=== PATIENT | male | born 1955 | race Caucasian/White ===

== ENCOUNTER 2016-05-12 14:52 | Emergency (ER) | payer OTHER ==
[~2016-05-12 14:52] MED LIST: PRED50 PO
[2016-05-12 15:57] VITALS: BP 140/82; PULSE 85; RESP 20; TEMP 98.1; O2SAT 98
--- NOTE | 2016-05-12 15:58 | PD ---
HPI Chief Complaint: [place] Act/ETOH Time Seen by Provider: 15:54 Travel History International Travel<30 days: No Contact w/Intl Traveler<30days: No Traveled to known affect area: No History of Present Illness HPI 61-year-old male brought into the emergency department under the Dean 's act for alcoholic intoxication. The patient is ambulatory, oriented to place and time, and is desiring to leave. He has no medical complaints. Patient is coherent and cooperative. He is homeless but feels that he can take care of himself. Not suicidal or homicidal. He has a history of MRSA and allergies to ibuprofen, and latex. PFSH Past Medical History Autoimmune Disease: No Heart Rhythm Problems: No Cancer: Yes (ESOPHAGEAL CANCER) Cardiac Catheterization: No Cardiovascular Problems: No Chemotherapy: Yes Congestive Heart Failure: No Cerebrovascular Accident: Yes (TIA) Diabetes: No Diminished Hearing: No Endocrine: No Gastrointestinal Disorders: Yes GERD: Yes Genitourinary: No Hiatal Hernia: No Hypertension: Yes Immune Disorder: No Implanted Vascular Access Dvce: Yes Musculoskeletal: No Neurologic: No Psychiatric: No Reproductive: No Respiratory: Yes (BRONCHITIS) Integumentary: Yes (RIGHT ARM PICC LINE FOR DAILY CUBICIN FOR CURRENT MRSA INFECTION) Radiation Therapy: Yes Ulcer: Yes Past Surgical History Abdominal Surgery: No AICD: No Arteriovenous Shunt: No Cardiac Surgery: No Coronary Artery Bypass Graft: No Ear Surgery: No Endocrine Surgery: No Eye Surgery: No Genitourinary Surgery: No Insulin Pump: No Joint Replacement: Yes (RIGHT ANKLE WITH PINS) Oral Surgery: Yes (TEETH PULLED) Pacemaker: No Thoracic Surgery: No Tonsillectomy: Yes Other Surgery: Yes (pins rt leg, esoghasgeal) Social History Alcohol Use: Yes (TRYS TO EVERY DAY) Tobacco Use: Yes Substance Use: No (denies drug use for 2 years) Allergies-Medications (Allergen,Severity, Reaction): Coded Allergies: Ibuprofen (Verified Allergy, Intermediate, Swelling, 02/22/16) Nonsteroidal Anti-Inflammatory Agts (Verified Allergy, Intermediate, NOT SPECIFIED, 02/22/16) Latex (Verified Allergy, Mild, BLISTER, 02/22/16) *MDRO Multi-Drug Resistant Organism (Verified Allergy, Unknown, 02/22/16) MRSA Sputum, Blood 05/2012 Reported Meds & Prescriptions Reported Meds & Active Scripts Active Prednisone 50 Mg Tab 50 Mg PO DAILY Review of Systems Except as stated in HPI: all other systems reviewed are Neg General / Constitutional: No: Fever Eyes: No: Visual changes HENT: No: Headaches Cardiovascular: No: Chest Pain or Discomfort Respiratory: No: Shortness of Breath Gastrointestinal: No: Abdominal Pain Genitourinary: No: Dysuria Musculoskeletal: No: Pain Skin: No Rash Neurologic: No: Weakness Psychiatric: Positive: Substance Abuse, No: Anxiety, Depression, Suicidal Ideations, Disorder of Thought, Mood Disorder, Homicidal Ideation Endocrine: No: Polydipsia Hematologic/Lymphatic: No: Easy Bruising Physical Exam Exam Limitations: Intoxication Narrative GENERAL: Patient is in no acute distress. He is alert and oriented 3. He is cooperative and in good spirits. SKIN: Warm and dry. No signs of trauma. HEAD: Atraumatic. Normocephalic. EYES: Pupils equal and round. No scleral icterus. No injection or drainage. ENT: No nasal bleeding or discharge. Mucous membranes pink and moist. Pharynx is clear. NECK: Trachea midline. Neck is supple and nontender. CARDIOVASCULAR: Regular rate and rhythm. RESPIRATORY: No accessory muscle use. Clear to auscultation. Breath sounds equal bilaterally. GASTROINTESTINAL: Abdomen soft, non-tender, nondistended. Hepatic and splenic margins not palpable. MUSCULOSKELETAL: Extremities without clubbing, cyanosis, or edema. No obvious deformities. NEUROLOGICAL: Awake and alert. No obvious cranial nerve deficits. Motor grossly within normal limits. Five out of 5 muscle strength in the arms and legs. Normal speech. PSYCHIATRIC: Appropriate mood and affect; insight and judgment normal. MDM Medical Decision Making Medical Screen Exam Complete: Yes Emergency Medical Condition: Yes Differential Diagnosis Dean's act. EtOH intoxication. Homeless. Narrative Course Patient is felt to be medically stable at time of exam. Based on my history and physical I feel this patient is free to go on his own recognizance. Patient is discharged with information for [facility] for EtOH rehabilitation. Diagnosis Primary Impression: Alcohol intoxication Qualified Code: F10.120 - Alcohol intoxication, uncomplicated Referrals: [facility] Additional Instructions: Recommend follow with [facility]. Med/Other Pt SpecificInfo: No Meds Exist/No RX given Disposition: DISCHARGE HOME Condition: Stable Marbin Lino May 12, 2016 15:58
== END 2016-05-12 16:11 | disposition home or self-care (01) ==
LOC: NEDAMB 14:52
DX: F10.120 Alcohol abuse with intoxication, uncomplicated (principal); I10 Essential (primary) hypertension; Z72.0 Tobacco use; Z86.14 Personal history of Methicillin resistant Staphylococcus aureus infection; Z85.01 Personal history of malignant neoplasm of esophagus; Z86.73 Personal history of transient ischemic attack (TIA), and cerebral infarction without residual deficits; Z87.19 Personal history of other diseases of the digestive system; Z87.09 Personal history of other diseases of the respiratory system; Z87.2 Personal history of diseases of the skin and subcutaneous tissue
CPT/HCPCS: 99284

== ENCOUNTER 2016-06-07 18:28 | Emergency (ER) | payer OTHER ==
[~2016-06-07] VITALS: Ht 165.1 cm; Wt 67.0 kg
--- NOTE | 2016-06-07 18:52 | PD ---
HPI Chief Complaint: alcohol intoxication Time Seen by Provider: 18:48 Travel History International Travel<30 days: No Contact w/Intl Traveler<30days: No History of Present Illness HPI 61-year-old male presents to the emergency Department under [place] Act by local police for alcohol intoxication. Patient states that he had "a lot" to drink today. He states he went to lay down in [facility] which is allowed to do an [place]. He states that at that point, he was picked up by the police. He states he needs somewhere to sleep, but denies any medical complaints. He denies any suicidal ideation. Patient reports having no chronic medical problems or taking prescribed medications. The patient answers questions appropriately. PFSH Past Medical History Autoimmune Disease: No Heart Rhythm Problems: No Cancer: Yes (ESOPHAGEAL CANCER) Cardiac Catheterization: No Cardiovascular Problems: No Chemotherapy: Yes Congestive Heart Failure: No Cerebrovascular Accident: Yes (TIA) Diabetes: No Diminished Hearing: No Endocrine: No Gastrointestinal Disorders: Yes GERD: Yes Genitourinary: No Hiatal Hernia: No Hypertension: Yes Immune Disorder: No Implanted Vascular Access Dvce: Yes Musculoskeletal: No Neurologic: No Psychiatric: No Reproductive: No Respiratory: Yes (BRONCHITIS) Integumentary: Yes (RIGHT ARM PICC LINE FOR DAILY CUBICIN FOR CURRENT MRSA INFECTION) Radiation Therapy: Yes Ulcer: Yes Past Surgical History Abdominal Surgery: No AICD: No Arteriovenous Shunt: No Cardiac Surgery: No Coronary Artery Bypass Graft: No Ear Surgery: No Endocrine Surgery: No Eye Surgery: No Genitourinary Surgery: No Insulin Pump: No Joint Replacement: Yes (RIGHT ANKLE WITH PINS) Oral Surgery: Yes (TEETH PULLED) Pacemaker: No Thoracic Surgery: No Tonsillectomy: Yes Other Surgery: Yes (pins rt leg, esoghasgeal) Social History Alcohol Use: Yes (TRYS TO EVERY DAY) Tobacco Use: Yes Substance Use: No (denies drug use for 2 years) Allergies-Medications (Allergen,Severity, Reaction): Coded Allergies: Ibuprofen (Verified Allergy, Intermediate, Swelling, 06/07/16) Nonsteroidal Anti-Inflammatory Agts (Verified Allergy, Intermediate, NOT SPECIFIED, 06/07/16) Latex (Verified Allergy, Mild, BLISTER, 06/07/16) *MDRO Multi-Drug Resistant Organism (Verified Allergy, Unknown, 06/07/16) MRSA Sputum, Blood 05/2012 Reported Meds & Prescriptions Reported Meds & Active Scripts Active Prednisone 50 Mg Tab 50 Mg PO DAILY Review of Systems Except as stated in HPI: all other systems reviewed are Neg Physical Exam Narrative GENERAL: Unkempt male patient, afebrile. Patient has strong smell of alcohol on his breath. SKIN: Focused skin assessment warm/dry. HEAD: Normocephalic. Atraumatic. EYES: No scleral icterus. No injection or drainage. NECK: Supple, trachea midline. No JVD or lymphadenopathy. CARDIOVASCULAR: Regular rate and rhythm without murmurs, gallops, or rubs. RESPIRATORY: Breath sounds equal bilaterally. No accessory muscle use. Lungs sounds are clear to auscultation. GASTROINTESTINAL: Abdomen soft, non-tender, nondistended. MUSCULOSKELETAL: No cyanosis, or edema. BACK: Nontender without obvious deformity. No CVA tenderness. PSYCHIATRIC: No delusional thought processes. No hallucinations. Data Data Last Documented VS Vital Signs Date Time Temp Pulse Resp B/P Pulse Ox O2 Delivery O2 Flow Rate FiO2 06/07/16 19:31 98.8 75 18 118/76 95 MDM Medical Decision Making Medical Screen Exam Complete: Yes Emergency Medical Condition: Yes Medical Record Reviewed: Yes Differential Diagnosis Alcohol intoxication versus substance abuse versus medical clearance Narrative Course 61-year-old male presents to the emergency department under [facility] for alcohol intoxication. Patient is alert and oriented to person, place, time. He has no medical complaints at this time. Patient will be allowed to rest in the emergency department. Patient is alert and oriented to person, place, time and is able ambulate without difficulty. He will be discharged. He is given information on public shelters. Diagnosis Primary Impression: Alcohol intoxication Qualified Code: F10.120 - Alcohol intoxication, uncomplicated Referrals: [facility] call for appointment Patient Instructions: Alcohol Intoxication (ED), General Instructions Additional Instructions: Follow-up at [facility]. Please drink alcohol in Moderation. Return to the emergency department for any acute worsening of symptoms. Med/Other Pt SpecificInfo: No Change to Meds Disposition: 01 DISCHARGE HOME Condition: Stable Eliana Oquendo LORETA Jun 07, 2016 18:52
[2016-06-07 19:31] VITALS: BP 118/76; PULSE 75; RESP 18; TEMP 98.8; O2SAT 95
--- NOTE | 2016-06-07 19:44 | PD ---
Data Data Last Documented VS Vital Signs Date Time Temp Pulse Resp B/P Pulse Ox O2 Delivery O2 Flow Rate FiO2 06/07/16 19:31 98.8 75 18 118/76 95 MDM Supervised Visit with SHARON: Yes Narrative Course I, Dr. Jordan, have reviewed the advance practice practioner's documentation and am in agreement, met with the patient face to face, made the diagnosis, and the medical decision making was done by me. *My assessment and Findings: 61-year-old here brought as a [place] act by police for public intoxication. Admits to drinking heavily and then leaned down on the side of the road, [facility] area patient moved here from [place] recently and does not have any home. Patient is able to ambulate independently in the emergency Department, vital signs stable. Patient denies any complaints. He will be discharged and given list of homeless shelters. Yuridia Jordan MD Jun 07, 2016 19:44
== END 2016-06-07 20:04 | disposition home or self-care (01) ==
LOC: NEPE 18:28
DX: F10.120 Alcohol abuse with intoxication, uncomplicated (principal); I10 Essential (primary) hypertension; Z72.0 Tobacco use; Z59.0 Homelessness; Z85.01 Personal history of malignant neoplasm of esophagus; Z86.79 Personal history of other diseases of the circulatory system; Z87.19 Personal history of other diseases of the digestive system
CPT/HCPCS: 99284

== ENCOUNTER 2016-08-15 13:28 | Emergency (ER) | payer OTHER ==
--- NOTE | 2016-08-15 13:57 | PD ---
HPI Chief Complaint: alcohol intoxication Time Seen by Provider: 13:44 Travel History International Travel<30 days: No Contact w/Intl Traveler<30days: No Traveled to known affect area: No History of Present Illness HPI This patient is a local homeless alcoholic. He drinks as much as he can get a hold of on a daily basis. He was drinking today. [place] Inspector found him lying on the median of the road and brought him into the ER. He does not have any specific physical complaints. He denies injury today. He just says he probably drank too much and wanted to take a break. Symptoms severity is mild. No alleviating factors. Duration is heavy drinking for many years PFSH Past Medical History Autoimmune Disease: No Heart Rhythm Problems: No Cancer: Yes (ESOPHAGEAL CANCER) Cardiac Catheterization: No Cardiovascular Problems: No Chemotherapy: Yes Congestive Heart Failure: No Cerebrovascular Accident: Yes (TIA) Diabetes: No Diminished Hearing: No Endocrine: No Gastrointestinal Disorders: Yes GERD: Yes Genitourinary: No Hiatal Hernia: No Hypertension: Yes Immune Disorder: No Implanted Vascular Access Dvce: Yes Musculoskeletal: No Neurologic: No Psychiatric: No Reproductive: No Respiratory: Yes (BRONCHITIS) Integumentary: Yes (RIGHT ARM PICC LINE FOR DAILY CUBICIN FOR CURRENT MRSA INFECTION) Radiation Therapy: Yes Ulcer: Yes Past Surgical History Abdominal Surgery: No AICD: No Arteriovenous Shunt: No Cardiac Surgery: No Coronary Artery Bypass Graft: No Ear Surgery: No Endocrine Surgery: No Eye Surgery: No Genitourinary Surgery: No Insulin Pump: No Joint Replacement: Yes (RIGHT ANKLE WITH PINS) Oral Surgery: Yes (TEETH PULLED) Pacemaker: No Thoracic Surgery: No Tonsillectomy: Yes Other Surgery: Yes (pins rt leg, esoghasgeal) Social History Alcohol Use: Yes (TRYS TO EVERY DAY) Tobacco Use: Yes Substance Use: No (denies drug use for 2 years) Allergies-Medications (Allergen,Severity, Reaction): Coded Allergies: Ibuprofen (Verified Allergy, Intermediate, Swelling, 06/07/16) Nonsteroidal Anti-Inflammatory Agts (Verified Allergy, Intermediate, NOT SPECIFIED, 06/07/16) Latex (Verified Allergy, Mild, BLISTER, 06/07/16) *MDRO Multi-Drug Resistant Organism (Verified Allergy, Unknown, 06/07/16) MRSA Sputum, Blood 05/2012 Reported Meds & Prescriptions Reported Meds & Active Scripts Active Prednisone 50 Mg Tab 50 Mg PO DAILY Review of Systems General / Constitutional: No: Fever Eyes: No: Visual changes HENT: No: Headaches Cardiovascular: No: Chest Pain or Discomfort Respiratory: No: Shortness of Breath Gastrointestinal: No: Abdominal Pain Genitourinary: No: Dysuria Musculoskeletal: No: Pain Skin: No Rash Neurologic: No: Weakness Psychiatric: Positive: Substance Abuse, No: Depression Endocrine: No: Polydipsia Hematologic/Lymphatic: No: Easy Bruising Physical Exam Narrative GENERAL: Disheveled well-developed patient in no apparent distress. SKIN: Focused skin assessment reveals no rash and nodules. Skin is Warm and dry. HEAD: Atraumatic. Normocephalic. EYES: Pupils equal and round. No scleral icterus. No injection or drainage. ENT: No nasal bleeding or discharge. Mucous membranes pink and moist. NECK: Trachea midline. No JVD. CARDIOVASCULAR: Regular rate and rhythm. No murmur appreciated. RESPIRATORY: No accessory muscle use. Clear to auscultation. Breath sounds equal bilaterally. GASTROINTESTINAL: Abdomen soft, non-tender, nondistended. Hepatic and splenic margins not palpable. 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 No clubbing. No cyanosis. No edema. Healing wound scar over the right buttock NEUROLOGICAL: Awake and alert. No obvious cranial nerve deficits. Motor grossly within normal limits. Normal speech. PSYCHIATRIC: Appropriate mood and affect; insight and judgment poor. Data Data Last Documented VS Vital Signs Date Time Temp Pulse Resp B/P Pulse Ox O2 Delivery O2 Flow Rate FiO2 08/15/16 14:25 98.6 87 18 140/77 99 Room Air Orders Iv Access Insert/Monitor (08/15/16 13:54) Complete Blood Count With Diff (08/15/16 13:54) Basic Metabolic Panel (Bmp) (08/15/16 13:54) Alcohol (Ethanol) (08/15/16 13:54) Isolation 08,20 (08/15/16 14:28) Acetaminophen (Tylenol) (08/15/16 14:45) Labs Laboratory Tests Test 08/15/16 14:16 White Blood Count 7.0 TH/MM3 Red Blood Count 4.28 MIL/MM3 Hemoglobin 13.8 GM/DL Hematocrit 40.0 % Mean Corpuscular Volume 93.7 FL Mean Corpuscular Hemoglobin 32.4 PG Mean Corpuscular Hemoglobin 34.6 % Concent Red Cell Distribution Width 15.0 % Platelet Count 228 TH/MM3 Mean Platelet Volume 6.5 FL Neutrophils (%) (Auto) 55.0 % Lymphocytes (%) (Auto) 35.3 % Monocytes (%) (Auto) 7.3 % Eosinophils (%) (Auto) 1.9 % Basophils (%) (Auto) 0.5 % Neutrophils # (Auto) 3.9 TH/MM3 Lymphocytes # (Auto) 2.5 TH/MM3 Monocytes # (Auto) 0.5 TH/MM3 Eosinophils # (Auto) 0.1 TH/MM3 Basophils # (Auto) 0.0 TH/MM3 CBC Comment DIFF FINAL Differential Comment Sodium Level 140 MEQ/L Potassium Level 4.4 MEQ/L Chloride Level 107 MEQ/L Carbon Dioxide Level 23.7 MEQ/L Anion Gap 9 MEQ/L Blood Urea Nitrogen 6 MG/DL Creatinine 0.65 MG/DL Estimat Glomerular Filtration 125 ML/MIN Rate Random Glucose 88 MG/DL Calcium Level 8.0 MG/DL Ethyl Alcohol Level 332 MG/DL [facility] Medical Decision Making Medical Screen Exam Complete: Yes Emergency Medical Condition: Yes Medical Record Reviewed: Yes Differential Diagnosis Alcohol intoxication, polysubstance abuse, malingering Narrative Course I have reviewed the patient's electronic medical record. IV placed CBC is normal Metabolic profile is normal Alcohol level is elevated showing acute intoxication Patient be given time to sober up when he can properly talk and walk he'll be stable for outpatient follow-up I'm recommending [facility] alcohol rehabilitation services and primary care follow-up He shows no interest in stopping drinking Diagnosis Primary Impression: Alcohol intoxication Qualified Code: F10.920 - Alcohol intoxication, uncomplicated Additional Impression: Alcohol dependence Qualified Code: F10.220 - Alcohol dependence with uncomplicated intoxication Additional Instructions: The patient was advised to follow up with their physician and return if they worsen. Recommending [facility] alcohol rehabilitation services Med/Other Pt SpecificInfo: Other Disposition: 01 DISCHARGE HOME Condition: Stable George Vasquez MD Aug 15, 2016 13:57
[2016-08-15 14:25] VITALS: BP 140/77; PULSE 87; RESP 18; TEMP 98.6; O2SAT 99
[2016-08-15 14:38] LABS: AUTOMATED NEUTROPHIL # 3.9 TH/MM3 (1.8-7.7); BASOPHIL % 0.5 % (0.0-2.0); EOSINOPHIL # 0.1 TH/MM3 (0-0.4); EOSINOPHIL % 1.9 % (0.0-4.0); HEMO FLAGS DIFF FINAL; LYMPH % 35.3 % (9.0-44.0); LYMPHOCYTE # 2.5 TH/MM3 (1.0-4.8); MEAN CELL VOLUME 93.7 FL (80.0-100.0); MEAN CORPUSCULAR HEMOGLOBIN 32.4 PG (27.0-34.0); MEAN CORPUSCULAR HGB CONC 34.6 % (32.0-36.0); MONO % 7.3 % (0.0-8.0); PLATELET COUNT 228 TH/MM3 (150-450); RED BLOOD COUNT 4.28 MIL/MM3 (4.50-5.90)
[2016-08-15] MEDS ORDERED: ACETAMINOPHEN 325 MG TAB PO ONE (14:45)
[2016-08-15 15:05] LABS: BICARBONATE 23.7 MEQ/L (21.0-32.0); POTASSIUM 4.4 MEQ/L (3.5-5.1)
== END 2016-08-15 20:44 | disposition home or self-care (01) ==
LOC: NEPD 13:28
DX: F10.220 Alcohol dependence with intoxication, uncomplicated (principal); Y90.8 Blood alcohol level of 240 mg/100 ml or more; Z72.0 Tobacco use
CPT/HCPCS: 80048; 80307; 85025; 99283

== ENCOUNTER 2016-08-16 03:22 | Observation (INO) | payer OTHER ==
[2016-08-16] VITALS (11 sets, daily range): BP systolic 119–201; BP diastolic 72–95; PULSE 53–78; RESP 16–18; TEMP 97.6–98; O2SAT 94–98
[~2016-08-16] VITALS: Ht 167.6 cm; Wt 65.9 kg
--- NOTE | 2016-08-16 05:09 | PD ---
HPI Chief Complaint: Medical Clearance Time Seen by Provider: 05:02 Travel History International Travel<30 days: No Contact w/Intl Traveler<30days: No Traveled to known affect area: No History of Present Illness HPI 61-year-old male who was here for alcohol intoxication and shortly after he was discharged around midnight noted chest pain. He states that it feels like a pressure. Severity is moderate. He denies other concurrent complaints. He states that when he had this similar he had a stress test thousand long time ago and it was normal. He states that he hasn't had an aspirin yet today. He denies specific modifying factors. He denies recurrent history of this. PFSH Past Medical History Autoimmune Disease: No Heart Rhythm Problems: No Cancer: Yes (ESOPHAGEAL CANCER) Cardiac Catheterization: No Cardiovascular Problems: No Chemotherapy: Yes Congestive Heart Failure: No Cerebrovascular Accident: Yes (TIA) Diabetes: No Diminished Hearing: No Endocrine: No Gastrointestinal Disorders: Yes GERD: Yes Genitourinary: No Hiatal Hernia: No Heparin Induced Thrombocytopen: No Hypertension: Yes Immune Disorder: No Implanted Vascular Access Dvce: Yes Musculoskeletal: No Neurologic: No Psychiatric: No Reproductive: No Respiratory: Yes (BRONCHITIS) Integumentary: Yes (RIGHT ARM PICC LINE FOR DAILY CUBICIN FOR CURRENT MRSA INFECTION) Radiation Therapy: Yes Ulcer: Yes Past Surgical History Abdominal Surgery: No AICD: No Arteriovenous Shunt: No Cardiac Surgery: No Coronary Artery Bypass Graft: No Ear Surgery: No Endocrine Surgery: No Eye Surgery: No Genitourinary Surgery: No Insulin Pump: No Joint Replacement: Yes (RIGHT ANKLE WITH PINS) Neurologic Surgery: No Oral Surgery: Yes (TEETH PULLED) Pacemaker: No Thoracic Surgery: No Tonsillectomy: Yes Other Surgery: Yes (pins rt leg, esoghasgeal) Social History Alcohol Use: Yes (TRYS TO EVERY DAY) Tobacco Use: Yes Substance Use: No (denies drug use for 2 years) Allergies-Medications (Allergen,Severity, Reaction): Coded Allergies: Ibuprofen (Verified Allergy, Intermediate, Swelling, 08/16/16) Nonsteroidal Anti-Inflammatory Agts (Verified Allergy, Intermediate, NOT SPECIFIED, 08/16/16) Latex (Verified Allergy, Mild, BLISTER, 08/16/16) *MDRO Multi-Drug Resistant Organism (Verified Allergy, Unknown, 08/16/16) MRSA Sputum, Blood 05/2012 Reported Meds & Prescriptions Reported Meds & Active Scripts Active Review of Systems Except as stated in HPI: all other systems reviewed are Neg Physical Exam Narrative GENERAL: Well-nourished, well-developed patient. Well-appearing SKIN: Warm and dry. HEAD: Normocephalic and atraumatic. EYES: No injection or drainage. ENT: No nasal drainage noted. NECK: Supple, trachea midline. CARDIOVASCULAR: Regular rate and rhythm RESPIRATORY: No increased effort. No accessory muscle use. GASTROINTESTINAL: Abdomen nondistended. NEUROLOGICAL: Awake and alert. Motor and sensory grossly within normal limits. Normal speech. Data Data Last Documented VS Vital Signs Date Time Temp Pulse Resp B/P Pulse Ox O2 Delivery O2 Flow Rate FiO2 08/16/16 05:20 68 18 153/83 94 Room Air 08/16/16 03:24 97.6 Orders Electrocardiogram (08/16/16 ) Electrocardiogram (08/16/16 05:03) Ckmb (Isoenzyme) Profile (08/16/16 05:03) Complete Blood Count With Diff (08/16/16 05:03) Comprehensive Metabolic Panel (08/16/16 05:03) Magnesium (Mg) (08/16/16 05:03) Prothrombin Time / Inr (Pt) (08/16/16 05:03) Act Partial Throm Time (Ptt) (08/16/16 05:03) Troponin I (08/16/16 05:03) Lipase (08/16/16 05:03) Chest, Single Ap (08/16/16 05:03) Ecg Monitoring (08/16/16 05:03) Bilateral Bp Monitoring (08/16/16 05:03) Iv Access Insert/Monitor (08/16/16 05:03) Oximetry (08/16/16 05:03) Sodium Chloride 0.9% Flush (Ns Flush) (08/16/16 05:15) CKMB (08/16/16 05:50) CKMB% (08/16/16 05:50) Admit Order (Ed Use Only) (08/16/16 06:36) Labs Laboratory Tests Test 08/16/16 05:50 White Blood Count 10.3 TH/MM3 Red Blood Count 4.35 MIL/MM3 Hemoglobin 14.0 GM/DL Hematocrit 40.9 % Mean Corpuscular Volume 94.1 FL Mean Corpuscular Hemoglobin 32.3 PG Mean Corpuscular Hemoglobin 34.3 % Concent Red Cell Distribution Width 14.8 % Platelet Count 217 TH/MM3 Mean Platelet Volume 6.7 FL Neutrophils (%) (Auto) 75.0 % Lymphocytes (%) (Auto) 13.9 % Monocytes (%) (Auto) 10.1 % Eosinophils (%) (Auto) 0.6 % Basophils (%) (Auto) 0.4 % Neutrophils # (Auto) 7.8 TH/MM3 Lymphocytes # (Auto) 1.4 TH/MM3 Monocytes # (Auto) 1.0 TH/MM3 Eosinophils # (Auto) 0.1 TH/MM3 Basophils # (Auto) 0.0 TH/MM3 CBC Comment DIFF FINAL Differential Comment Prothrombin Time 10.0 SEC Prothromb Time International 0.9 RATIO Ratio Activated Partial 22.6 SEC Thromboplast Time Sodium Level 139 MEQ/L Potassium Level 4.2 MEQ/L Chloride Level 104 MEQ/L Carbon Dioxide Level 25.9 MEQ/L Anion Gap 9 MEQ/L Blood Urea Nitrogen 6 MG/DL Creatinine 0.56 MG/DL Estimat Glomerular Filtration 148 ML/MIN Rate Random Glucose 79 MG/DL Calcium Level 8.7 MG/DL Magnesium Level 2.1 MG/DL Total Bilirubin 1.8 MG/DL Aspartate Amino Transf 33 U/L (AST/SGOT) Alanine Aminotransferase 30 U/L (ALT/SGPT) Alkaline Phosphatase 79 U/L Total Creatine Kinase 103 U/L Troponin I LESS THAN 0.02 NG/ML Total Protein 7.3 GM/DL Albumin 3.3 GM/DL Lipase 89 U/L MDM Medical Decision Making Medical Screen Exam Complete: Yes Emergency Medical Condition: Yes Medical Record Reviewed: Yes (past history confirmed) Interpretation(s) EKG shows NSR, no ST elevation or depression, and no arrhythmias. No significant T-wave inversions. Last 24 hours Impressions Chest X-Ray 08/16/16 050 Signed Impressions: Service Date/Time: Tuesday, August 16, 2016 05:28 - CONCLUSION: No acute disease. Jeancarlos Galloway MD CBC & BMP Diagram 08/16/16 05:50 Differential Diagnosis Cardiac, gastritis, pancreatitis, musculoskeletal Narrative Course Will check lab work, chest x-ray and reevaluate labs wnl, will place in [facility] for observation, given aspirin Diagnosis Primary Impression: Chest pain Qualified Code: R07.9 - Chest pain, unspecified type Susan Hi MD Aug 16, 2016 05:09
[2016-08-16] MEDS ORDERED: SODIUM CHLORIDE 0.9% FLUSH 10 ML FLUSH IVF PRN (05:15)
--- NOTE | 2016-08-16 05:51 | RADRPT ---
EXAM DATE/TIME: 08/16/2016 05:28 [facility] COMPARISON: CHEST SINGLE AP, January 28, 2015, 14:30. INDICATIONS : Sudden onset of chest pain. MEDICAL HISTORY : Gastroesophageal reflux disease. Carcinoma, esophageal. TIA, MRSA SURGICAL HISTORY : None. ENCOUNTER: Initial ACUITY: 1 day PAIN SCORE: 7/10 LOCATION: Bilateral chest FINDINGS: A single view of the chest demonstrates the lungs to be symmetrically aerated without evidence of mas s, infiltrate or effusion. The cardiomediastinal contours are unremarkable. Osseous structures are intact. CONCLUSION: No acute disease. Jeancarlos Galloway MD on August 16, 2016 at 5:50 Board Certified Radiologist. This report was verified electronically.
[2016-08-16 05:58] LABS: AUTOMATED NEUTROPHIL # 7.8 TH/MM3 (1.8-7.7); BASOPHIL % 0.4 % (0.0-2.0); EOSINOPHIL # 0.1 TH/MM3 (0-0.4); EOSINOPHIL % 0.6 % (0.0-4.0); HEMATOCRIT 40.9 % (39.0-51.0); HEMO FLAGS DIFF FINAL; LYMPH % 13.9 % (9.0-44.0); LYMPHOCYTE # 1.4 TH/MM3 (1.0-4.8); MEAN CELL VOLUME 94.1 FL (80.0-100.0); MEAN CORPUSCULAR HEMOGLOBIN 32.3 PG (27.0-34.0); MEAN CORPUSCULAR HGB CONC 34.3 % (32.0-36.0); MONO % 10.1 % (0.0-8.0); PLATELET COUNT 217 TH/MM3 (150-450); RED BLOOD COUNT 4.35 MIL/MM3 (4.50-5.90); RED CELL DISTRIBUTION WIDTH 14.8 % (11.6-17.2); WHITE BLOOD COUNT 10.3 TH/MM3 (4.0-11.0)
[2016-08-16 06:11] LABS: APTT (PATIENT) 22.6 SEC (24.3-30.1); INTERNATIONAL NORMALIZED RATIO 0.9 RATIO
[2016-08-16 06:21] LABS: ALT (GPT) 30 U/L (12-78); ANION GAP 9 MEQ/L (5-15); AST (GOT) 33 U/L (15-37); BICARBONATE 25.9 MEQ/L (21.0-32.0); BLOOD UREA NITROGEN 6 MG/DL (7-18); CHLORIDE 104 MEQ/L (98-107); GLOMERULAR FILTRATION RATE 148 ML/MIN (>89); MAGNESIUM 2.1 MG/DL (1.5-2.5); POTASSIUM 4.2 MEQ/L (3.5-5.1); SODIUM (NA) 139 MEQ/L (136-145)
[2016-08-16 06:25] LABS: ALKALINE PHOSPHATASE 79 U/L (45-117); CREATINE KINASE 103 U/L (39-308); TOTAL BILIRUBIN ADULT 1.8 MG/DL (0.2-1.0)
[2016-08-16 06:37] LABS: CKMB 1.1 NG/ML (0.5-3.6)
[2016-08-16] MEDS ORDERED: ASPIRIN 325 MG TAB PO ONE (06:45)
[2016-08-16] MEDS ORDERED: SODIUM CHLOR 0.9% 1000 ML INJ 1,000 ML IV SCH (09:28)
[2016-08-16] MEDS ORDERED: MULTIVITAMIN TAB PO ONE (09:30)
[2016-08-16] MEDS ORDERED: LORazepam 2 MG/ML VIAL IV PUSH PRN ×5 (09:30→14:45)
[2016-08-16] MEDS ORDERED: THIAMINE HCL 100 MG TAB PO ONE (09:30)
[2016-08-16] MEDS ORDERED: RESP: ALBUTEROL 2.5 MG/IPRATROPIUM 0.5 MG NEB (PRN) INH (09:30)
[2016-08-16 09:37] LABS: CREATINE KINASE 107 U/L (39-308)
[2016-08-16 09:49] LABS: CKMB 1.2 NG/ML (0.5-3.6)
[2016-08-16] MEDS: PANTOPRAZOLE SOD 40 MG DELAYED RELEASE TAB PO SCH (10:03)
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
[2016-08-16] MEDS ORDERED: REGADENOSON INJ 0.4 MG/5 ML SYR ONE (11:37)
--- NOTE | 2016-08-16 12:11 | EKG ---
Date Performed: 08/16/2016 Time Performed: 04:45:24 PTAGE: 61 years EKG: Sinus rhythm NORMAL ECG PREVIOUS TRACING : 07/06/2015 21.09 DOCTOR: Paul Jackson Interpretating Date/Time 08/16/2016 12:10:23
--- NOTE | 2016-08-16 12:38 | TR ---
Date Performed: 08/16/2016 Time Performed: 11:42:44 DOCTOR: Paul Jackson DRUG LIST: CLINICAL HISTORY: REASON FOR TEST: CHEST PAIN REASON FOR ENDING: OBSERVATION: CONCLUSION: Lexiscan stress test was performed under standard four minute protocol. Radionuclide was injected one minute prior to ending the test. Developed nausea, systolic blood pressure was mild ly elevated. No electrocardiographic abnormalities were present to suggest ischemia. Recovery was gui ck and uneventful with resolution of nausea, systolic blood pressure remained mildly elevated. Nuclea r imaging and interpretation are pending. COMMENTS:
--- NOTE | 2016-08-16 13:06 | RADRPT ---
EXAM DATE/TIME: 08/16/2016 10:54 [facility] COMPARISON: No previous studies available for comparison. INDICATIONS : Chest pain. Angina. DOSE: 25.9 mCi Tc99m Myoview at stress. 8.7 mCi Tc99m Myoview at rest. 0.4 mg Lexiscan STRESS SYMPTOMS: Nausea. EJECTION FRACTION: 70% MEDICAL HISTORY : Gastroesophageal reflux disease. Hypertension. Carcinoma, esophageal. Stroke, SURGICAL HISTORY : Ankle. ENCOUNTER: Initial ACUITY: 1 day PAIN SCALE: 5/10 LOCATION: chest TECHNIQUE: The patient underwent pharmacologic stress with infusion of prescribed dose. Continuous ECG tracing was monitored during stress. Gated SPECT imaging was performed after stress and conventional SPECT i maging was performed at rest. The examination was performed on a SPECT/CT scanner, both attenuation and non-corrected datasets were reviewed. FINDINGS: DISTRIBUTION: The maximum perfused segment at stress is in the lateral wall. PERFUSION STUDY: Small areas of decreased perfusion on the stress images are seen of the anterior wall and inferior se ptum. GATED STUDY: There is intact wall motion and thickening without hypokinetic or dyskinetic segments. CONCLUSION: Stress-induced ischemia focally in the anterior wall and inferior septum. RISK CATEGORY: Intermediate Trino Phillips MD on August 16, 2016 at 13:03 Board Certified Radiologist. This report was verified electronically.
[2016-08-16 13:49] LABS: CREATINE KINASE 86 U/L (39-308)
--- NOTE | 2016-08-16 14:07 | EKG ---
Date Performed: 08/16/2016 Time Performed: 07:50:19 PTAGE: 61 years EKG: Sinus rhythm NORMAL ECG PREVIOUS TRACING : 08/16/2016 04.45 DOCTOR: Paul Jackson Interpretating Date/Time 08/16/2016 14:06:28
[2016-08-16] MEDS: METOPROLOL TARTRATE 25 MG TAB PO SCH ×2 (14:10→20:07)
--- NOTE | 2016-08-16 14:14 | EKG ---
Date Performed: 08/16/2016 Time Performed: 08:49:47 PTAGE: 61 years EKG: SINUS BRADYCARDIA BORDERLINE LEFT AXIS DEVIATION MODERATE INTRAVENTRICULAR CONDUCTION DELAY VOLTAGE FOR LEFT VENTRICULAR HYPERTROPHY ABNORMAL ECG PREVIOUS TRACING : 08/16/2016 07.50 DOCTOR: Paul Jackson Interpretating Date/Time 08/19/2016 07:32:22
--- NOTE | 2016-08-16 14:18 | EKG ---
Date Performed: 08/16/2016 Time Performed: 13:04:37 PTAGE: 61 years EKG: Sinus rhythm WITH SINUS ARRHYTHMIA LEFT AXIS DEVIATION ABNORMAL ECG PREVIOUS TRACING : 08/16/2016 08.49 DOCTOR: Paul Jackson Interpretating Date/Time 08/16/2016 14:17:37
[2016-08-16] MEDS ORDERED: LORazepam 1 MG TAB PO PRN (14:45)
[2016-08-16] MEDS ORDERED: LORazepam 2 MG TAB PO PRN (14:45)
[2016-08-16] MEDS ORDERED: cloNIDine HCL 0.1 MG TAB PO PRN (14:45)
[2016-08-16] MEDS ORDERED: FLUMAZENIL 0.5 MG/5 ML VIAL IV PUSH PRN (14:45)
[2016-08-16] MEDS ORDERED: IOHEXOL 350 MG/ML 10 ML VIAL (for RAD DIAG) IV ONE (16:51)
--- NOTE | 2016-08-16 17:12 | RADRPT ---
EXAM DATE/TIME: 08/16/2016 16:32 [facility] COMPARISON: No previous studies available for comparison. INDICATIONS : Chest pain and shortness of breath; evaluate for aneurysm. IV CONTRAST: 78 cc Omnipaque 350 (iohexol) IV RADIATION DOSE: 15.50 CTDIvol (mGy) MEDICAL HISTORY : Carcinoma, esophageal. Ulcers. Cardiovascular diseaseHypertension. SURGICAL HISTORY : None. ENCOUNTER: Initial ACUITY: 1 day PAIN SCALE: 6/10 LOCATION: Bilateral chest TECHNIQUE: Volumetric scanning was performed using a multi-row detector CT scanner. The data was post processed with a variety of visualization algorithms including full volume maximum intensity projection, multi -planar sliding thin slab reformation, curved planar reformation, and surface rendering techniques. Using automated exposure control and adjustment of the mA and/or kV according to patient size, radiat ion dose was kept as low as reasonably achievable to obtain optimal diagnostic quality images. FINDINGS: There is no aortic aneurysm in the thorax or abdomen. No aortic dissection. There is mild atheroscler otic disease in the aorta and branches including coronary arteries. Mild emphysema in the lungs. There is linear scarring and atelectasis at the bases. Mild cylindrical bronchiectasis right lower lobe. No dense consolidation. No pleural or pericardial effusion. No adeno bryon. No acute findings within the abdomen and pelvis. No bowel obstruction, free air or free fluid. CONCLUSION: 1. Negative for thoracic or abdominal aortic aneurysm or dissection. Mild atherosclerotic disease. Mi ld emphysema. 2. Linear atelectasis or scarring, mostly in the right lower lobe with several areas of mild cylindri dhaval bronchiectasis. Mann Rawls MD on August 16, 2016 at 17:02 Board Certified Radiologist. This report was verified electronically.
--- NOTE | 2016-08-16 17:52 | MB ---
cc: MEGHANN HALL MD, RICHARD H. MD DATE OF CONSULTATION 08/16/16 I have reviewed prior and present hospital records. I have spoken to the radiologist about the nuclear stress test. The patient is a 61-year-old white man who I am seeing for chest discomfort and an abnormal SPECT nuclear. The patient is homeless and drinks huge amounts of alcohol including at least gallons of beer per day. He has had numerous emergency room visit for intoxication. At about midnight last night, the patient developed a sharp, localized substernal discomfort without radiation or associated symptoms. It was definitely pleuritic. It lasted a total of 4-5 hours and has resolved. He notes no exertional discomfort nor any other cardiopulmonary history. PAST MEDICAL HISTORY 1. Alcohol abuse 2. Esophageal cancer with surgery and chemotherapy 3. TIA. 4. MRSA. 5. Right ankle surgery 6. Left great toe amputation - traumatic 7. Esophageal reflux. ALLERGIES LATEX NONSTEROIDAL ANTIINFLAMMATORY DRUGS SOCIAL HISTORY He does smoke and drink heavy amounts of beer. He is single. FAMILY HISTORY Noncontributory. REVIEW OF SYSTEMS Only remarkable for occasional joint pain and the above. CARDIOLOGY STUDIES EKG shows sinus rhythm without acute changes. IMAGING STUDIES Chest x-ray shows no active disease. SPECT nuclear showed small areas of mild possible ischemia in the anterior wall and inferior septum. LABORATORY FINDINGS CMP normal except for an elevated bilirubin at 1.8 and low albumin at 3.3. Troponin is negative x3. PT/PTT normal. CBC normal with mild abnormality in the differential. PHYSICAL EXAMINATION GENERAL: On exam, he is significantly hypertensive on admission. VITAL SIGNS: Vital signs stable otherwise. He is resting comfortably. HEENT: There are no xanthelasma. Oral pharyngeal mucosa normal. CHEST: Clear. JVD normal. CARDIAC: S1-S2 no murmurs or gallops. ABDOMEN: Benign. EXTREMITIES: No cyanosis, clubbing or edema. Pulses: 1-2+ throughout without bruits. He is not ambulated. ASSESSMENT 1. Chest discomfort - this is clearly pleuritic, prolonged and not associated with elevated cardiac enzymes OR EKG changes. This would appear to be a musculoskeletal or pulmonary etiology. 2. Abnormal SPECT nuclear - this is mildly abnormal after discussion with the radiologist. 3. Hypertension 4. Tobacco and alcohol abuse. RECOMMENDATIONS 1. The patient had prolonged chest discomfort which was pleuritic and clearly does not appear to be ischemic. He is extremely noncompliant and a severe alcoholic along with having esophageal disease. As his discomfort appears noncardiac, I would only treat him medically. Certainly, his blood pressure needs better control and he does need followup with the medicine clinic. 2. Alcohol and tobacco abstinence 3. I have spoken to Dr. Jackson and recommended a stat CT angiogram to primarily rule out aortic dissection but also try to rule out pulmonary embolus. I would not consider catheterization at this point in time given the mild abnormalities and non cardiac description. Again, he will need followup in the medicine clinic. MD EREN Shaikh/ /3:07 PM /5:43 PM
[2016-08-16] MEDS: SODIUM CHLORIDE 0.9% FLUSH 10 ML FLUSH IV FLUSH SCH (20:25)
[2016-08-16] MEDS ORDERED: ATORVASTATIN 20 MG TAB PO SCH (21:00)
[2016-08-17 00:13] VITALS: BP 164/73; PULSE 60; RESP 16; TEMP 97.5; O2SAT 96
[2016-08-17 00:20] VITALS: PULSE 89
[2016-08-17 05:47] VITALS: BP 160/91; PULSE 68; RESP 16; TEMP 97.3; O2SAT 98
[2016-08-17 07:45] VITALS: PULSE 54
[2016-08-17 08:36] VITALS: BP 138/80; PULSE 68; RESP 20; TEMP 98.2; O2SAT 96
[2016-08-17] MEDS ORDERED: ASPIRIN 325 MG TAB PO SCH (09:00)
[2016-08-17] MEDS ORDERED: THIAMINE HCL 100 MG TAB PO SCH (09:00)
[2016-08-17] MEDS ORDERED: FOLIC ACID 1 MG TAB PO SCH (09:00)
[2016-08-17] MEDS ORDERED: MULTIVITAMINS/MINERALS THERAPEUTIC TAB PO SCH (09:00)
[2016-08-17] MEDS: METOPROLOL TARTRATE 25 MG TAB PO SCH (09:43)
[2016-08-17] MEDS: PANTOPRAZOLE SOD 40 MG DELAYED RELEASE TAB PO SCH (09:44)
[2016-08-17] MEDS: SODIUM CHLORIDE 0.9% FLUSH 10 ML FLUSH IV FLUSH SCH (09:44)
[2016-08-17] MEDS ORDERED: METO25TA3 PO (10:35)
[2016-08-17] MEDS ORDERED: ASPI-147 PO (10:35)
[2016-08-17] MEDS ORDERED: PANT40TA3 PO (10:35)
--- NOTE | 2016-08-17 10:36 | HHI.DCPOC ---
Discharge Care Plan Diagnosis: (1) Atypical chest pain (2) Alcohol dependence (3) HTN (hypertension) Goals to Promote Your Health * To prevent worsening of your condition and complications * To maintain your health at the optimal level Directions to Meet Your Goals Take your medications as prescribed Follow your dietary instruction Follow activity as directed Keep your appointments as scheduled Take your immunizations and boosters as scheduled If your symptoms worsen call your PCP, if no PCP go to Urgent Care Center or Emergency Room Smoking is Dangerous to Your Health. Avoid second hand smoke Call the 24-hour hour crisis hotline for domestic abuse at Diane Powell PA-C Aug 17, 2016 10:36 am
--- NOTE | 2016-08-17 10:55 | HHI.PR ---
Subjective Remarks Follow up for atypical chest pain. The patient reports no further episodes of chest pain. Denies any palpitations or shortness of breath. He denies any other medical complaints. He wants to go home. He states he has been set up with a Yellow Card previously and is able to obtain his prescriptions with a voucher. Discussed alcohol cessation, patient states "well I'm gonna try" but does not seem motivated at this time. Objective Vitals Vital Signs Date Time Temp Pulse Resp B/P Pulse Ox O2 Delivery O2 Flow Rate FiO2 08/17/16 08:36 98.2 68 20 138/80 96 08/17/16 07:32 21 08/17/16 05:47 97.3 68 16 160/91 98 08/17/16 00:20 89 08/17/16 00:13 97.5 60 16 164/73 96 08/16/16 20:50 98 08/16/16 20:10 98.0 68 16 119/72 98 08/16/16 19:40 63 08/16/16 16:02 98.0 63 18 136/72 96 08/16/16 15:42 53 08/16/16 13:37 97.6 71 18 173/80 98 08/16/16 13:30 61 Result Diagram: 08/16/16 0550 08/16/16 0550 Imaging Last Impressions Chest X-Ray 08/16/16 0503 Signed Impressions: Service Date/Time: Tuesday, August 16, 2016 05:28 - CONCLUSION: No acute disease. Jeancarlos Galloway MD Myocardial Perfusion Scan Nuc Med 08/16/16 0000 Signed Impressions: Service Date/Time: Tuesday, August 16, 2016 10:54 - CONCLUSION: Stress-induced ischemia focally in the anterior wall and inferior septum. RISK CATEGORY: Intermediate Trino Phillips MD Aorta CTA 08/16/16 0000 Signed Impressions: Service Date/Time: Tuesday, August 16, 2016 16:32 - CONCLUSION: 1. Negative for thoracic or abdominal aortic aneurysm or dissection. Mild atherosclerotic disease. Mild emphysema. 2. Linear atelectasis or scarring, mostly in the right lower lobe with several areas of mild cylindrical bronchiectasis. Mann Rawls MD Objective Remarks GENERAL: Well-nourished, well-developed middle aged male patient in [facility]. SKIN: Warm and dry. No rash. HEENT: Normocephalic. Atraumatic. Pupils equal and round. Mucous membranes pink and moist. NECK: Supple. Trachea midline. CARDIOVASCULAR: Regular rate and rhythm. S1, S2 noted. No murmur appreciated. RESPIRATORY: No accessory muscle use. Clear to auscultation. Breath sounds equal bilaterally. GASTROINTESTINAL: Abdomen soft, non-tender, nondistended. Normoactive bowel sounds x4. MUSCULOSKELETAL: No obvious deformities. Extremities without clubbing, cyanosis , or edema. NEUROLOGICAL: Awake and alert. No obvious cranial nerve deficits. Motor grossly within normal limits. Normal speech. PSYCHIATRIC: Appropriate mood and affect; insight and judgment normal. Medications and IVs Current Medications Medications (Trade) Dose Ordered Sig/Lela Route Start Time Stop Time Status Last Admin (NS Flush) 2 ml UNSCH PRN IVF 08/16/16 05:15 (Protonix) 40 mg DAILY PO 08/16/16 09:30 08/17/16 09:44 (Ativan Inj) 1 mg Q4H PRN IV PUSH 08/16/16 09:30 08/16/16 10:15 (Aspirin) 325 mg DAILY PO 08/17/16 09:00 08/17/16 09:43 (Lopressor) 25 mg Q12HR PO 08/16/16 13:45 08/17/16 09:43 (Lipitor) 20 mg HS PO 08/16/16 21:00 08/16/16 20:08 (NS Flush) 2 ml BID IV FLUSH 08/16/16 21:00 (Folate) 1 mg DAILY PO 08/17/16 09:00 08/22/16 08:59 08/17/16 09:43 (Vitamin B1) 100 mg DAILY PO 08/17/16 09:00 08/17/16 09:44 (Theragran M Tab) 1 tab DAILY PO 08/17/16 09:00 08/22/16 08:59 08/17/16 09:44 (Catapres) 0.1 mg Q6H PRN PO 08/16/16 14:45 (Romazicon Inj) 0.2 mg Q1M PRN IV PUSH 08/16/16 14:45 (Ativan) 1 mg Q4H PRN PO 08/16/16 14:45 (Ativan Inj) 1 mg Q4H PRN IV PUSH 08/16/16 14:45 (Ativan) 2 mg Q2H PRN PO 08/16/16 14:45 (Ativan Inj) 2 mg Q2H PRN IV PUSH 08/16/16 14:45 (Ativan Inj) 2 mg Q1H PRN IV PUSH 08/16/16 14:45 (Ativan Inj) 2 mg Q15M PRN IV PUSH 08/16/16 14:45 A/P Assessment and Plan 61-year-old male with history of alcoholism and tobacco use presents with chest pain Atypical chest pain: Sounds pleuritic. Chest pain resolved upon arrival. Initially admitted to [facility], ACS ruled out with negative serial cardiac enzymes 3, and EKG without acute ischemic changes. However nuclear stress test showed "stress-induced ischemia focally in the anterior wall and inferior septum". Patient transferred to hospitalist service. Cardiology consulted, seen by Dr. Gleason, reports chest pain likely noncardiac, recommended CTA which was negative for dissection/aneurysm. Discussed with Dr. Gleason today 08/17, cleared for discharge. Lipid panel wnl. Discharge on aspirin, metoprolol. Alcohol Abuse: counseled on cessation. Patient drinks 1gallon beer daily. CIWA protocol. Thiamine/folate/MV. No signs of withdrawal at this time. DVT Prophylaxis: ambulation Discussed with Dr. Herron, Dr. Gleason, RN. Discharge Planning Discharge patient to home Condition on discharge: Improved Heart Healthy Diet as tolerated Ad Maxine activity Rx written: ecotrin 81mg daily, metoprolol 25mg bid, protonix 40mg daily Follow-up with primary care physician within 1 week Attending Statement Seen in his bedroom, discussed with RAY Powell will be discharge with recommendations given by Cardiology. Diane Powell PA-C Aug 17, 2016 10:55 Ben Marcus MD Aug 17, 2016 18:07
== END 2016-08-17 12:55 | disposition home or self-care (01) ==
LOC: NEPC 03:22 → NEDA 06:37 → NEPHCDU 08:29
PROVIDERS: ADMIT Internal Medicine; ATTEND Internal Medicine
DX: R07.89 Other chest pain (principal); I10 Essential (primary) hypertension; F10.10 Alcohol abuse, uncomplicated; F17.200 Nicotine dependence, unspecified, uncomplicated; Z85.01 Personal history of malignant neoplasm of esophagus; Z88.8 Allergy status to other drugs, medicaments and biological substances; Z88.6 Allergy status to analgesic agent; Z91.040 Latex allergy status; Z89.412 Acquired absence of left great toe; Z86.73 Personal history of transient ischemic attack (TIA), and cerebral infarction without residual deficits; Z96.661 Presence of right artificial ankle joint; Z92.21 Personal history of antineoplastic chemotherapy
CPT/HCPCS: 71010; 71275; 74174; 78452; 80053; 80061; 80307; 82550; 82552; 83690; 83735; 84484; 85025; 85610; 85730; 93005; 93017; 96374; 99285; A9502; G0378; J2060; J2785; J7030; Q9967

== ENCOUNTER 2016-12-05 19:14 | Emergency (ER) | payer OTHER ==
[~2016-12-05] VITALS: Ht 175.3 cm; Wt 80.0 kg
[~2016-12-05 19:14] MED LIST changes: +ASPI-147 PO; +METO25TA3 PO; +PANT40TA3 PO; -PRED50 PO
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
[2016-12-05 20:21] VITALS: BP 143/79; PULSE 81; RESP 16; TEMP 98.4; O2SAT 97
--- NOTE | 2016-12-06 08:32 | EKG ---
Date Performed: 12/05/2016 Time Performed: 20:03:27 PTAGE: 61 years EKG: Sinus rhythm NORMAL ECG PREVIOUS TRACING : 08/16/2016 13.04 No significant change from previous tracing noted. DOCTOR: Jordon Siu Interpretating Date/Time 12/06/2016 08:31:18
== END 2016-12-05 20:56 | disposition home or self-care (01) ==
LOC: NEPE 19:14 → NEDAMB 20:56
DX: F10.129 Alcohol abuse with intoxication, unspecified (principal); R07.9 Chest pain, unspecified; K21.9 Gastro-esophageal reflux disease without esophagitis; Z86.73 Personal history of transient ischemic attack (TIA), and cerebral infarction without residual deficits; Z72.0 Tobacco use; Z79.82 Long term (current) use of aspirin; Z79.899 Other long term (current) drug therapy; Z88.6 Allergy status to analgesic agent; Z88.8 Allergy status to other drugs, medicaments and biological substances
CPT/HCPCS: 93005; 99283

== ENCOUNTER 2016-12-05 21:18 | Emergency (ER) | payer OTHER ==
[~2016-12-05] VITALS: Ht 167.6 cm; Wt 70.0 kg
[2016-12-05 21:21] VITALS: BP 168/86; PULSE 82; RESP 16; TEMP 98.7; O2SAT 99
[2016-12-05 22:32] VITALS: BP 113/65; PULSE 76; RESP 20; O2SAT 100
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
[2016-12-05] MEDS ORDERED: ACETAMINOPHEN 325 MG TAB PO ONE (23:00)
--- NOTE | 2016-12-05 23:47 | RADRPT ---
EXAM DATE/TIME: 12/05/2016 22:58 [facility] COMPARISON: No previous studies available for comparison. INDICATIONS : Ankle pain. MEDICAL HISTORY : Carcinoma, esophageal. Ulcers. Cardiovascular disease. Hypertension SURGICAL HISTORY : Amputation great toe of left foot. ENCOUNTER: Initial ACUITY: 1 day PAIN SCORE: 10/10 LOCATION: Left ankle. FINDINGS: Three view exam was performed of the left ankle. The bony structures are in normal alignment. No ev idence of fracture, dislocation. The ankle mortise is intact. No radiopaque foreign bodies are seen . Bony mineralization is normal. CONCLUSION: No acute fracture. Soft tissue swelling over lateral malleolus. Mann Rawls MD on December 05, 2016 at 23:43 Board Certified Radiologist. This report was verified electronically.
== END 2016-12-06 00:49 | disposition home or self-care (01) ==
LOC: NEPD 21:18
DX: S93.401A Sprain of unspecified ligament of right ankle, initial encounter (principal); I10 Essential (primary) hypertension; K21.9 Gastro-esophageal reflux disease without esophagitis; W19.XXXA Unspecified fall, initial encounter; Z88.6 Allergy status to analgesic agent; Z72.0 Tobacco use; Z85.01 Personal history of malignant neoplasm of esophagus; Z86.73 Personal history of transient ischemic attack (TIA), and cerebral infarction without residual deficits; Z88.8 Allergy status to other drugs, medicaments and biological substances
CPT/HCPCS: 73610; 99283

== ENCOUNTER 2017-06-11 17:14 | Emergency (ER) | payer OTHER ==
[~2017-06-11] VITALS: Ht 165.1 cm; Wt 65.0 kg
[2017-06-11 17:53] VITALS: BP 127/70; PULSE 83; RESP 17; TEMP 97.8; O2SAT 96
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
[2017-06-11 18:46] LABS: AUTOMATED NEUTROPHIL # 4.7 TH/MM3 (1.8-7.7); BASOPHIL % 0.3 % (0.0-2.0); EOSINOPHIL # 0.1 TH/MM3 (0-0.4); EOSINOPHIL % 1.2 % (0.0-4.0); HEMATOCRIT 42.4 % (39.0-51.0); HEMOGLOBIN 14.1 GM/DL (13.0-17.0); LYMPH % 30.9 % (9.0-44.0); LYMPHOCYTE # 2.4 TH/MM3 (1.0-4.8); MEAN CELL VOLUME 94.5 FL (80.0-100.0); MEAN CORPUSCULAR HEMOGLOBIN 31.4 PG (27.0-34.0); MEAN CORPUSCULAR HGB CONC 33.2 % (32.0-36.0); MEAN PLATELET VOLUME 6.7 FL (7.0-11.0); MONO % 7.2 % (0.0-8.0); MONOCYTE # 0.6 TH/MM3 (0-0.9); NEUT % 60.4 % (16.0-70.0); PLATELET COUNT 197 TH/MM3 (150-450); RED BLOOD COUNT 4.48 MIL/MM3 (4.50-5.90); RED CELL DISTRIBUTION WIDTH 15.4 % (11.6-17.2); WHITE BLOOD COUNT 7.7 TH/MM3 (4.0-11.0)
[2017-06-11 18:48] LABS: INTERNATIONAL NORMALIZED RATIO 0.9 RATIO; PROTHROMBIN TIME - PATIENT 9.3 SEC (9.8-11.6)
[2017-06-11 19:09] LABS: ALBUMIN 3.4 GM/DL (3.4-5.0); AST (GOT) 31 U/L (15-37); BICARBONATE 25.6 MEQ/L (21.0-32.0); BLOOD UREA NITROGEN 6 MG/DL (7-18); CALCIUM 7.8 MG/DL (8.5-10.1); CHLORIDE 107 MEQ/L (98-107); GLOMERULAR FILTRATION RATE 114 ML/MIN (>89); GLUCOSE,RANDOM 104 MG/DL (74-106); SODIUM (NA) 139 MEQ/L (136-145)
[2017-06-11 19:10] LABS: ALT (GPT) 22 U/L (12-78)
[2017-06-11 19:12] LABS: ALKALINE PHOSPHATASE 71 U/L (45-117); TOTAL BILIRUBIN ADULT 0.3 MG/DL (0.2-1.0); TOTAL PROTEIN 7.2 GM/DL (6.4-8.2)
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
[2017-06-11] MEDS ORDERED: IOHEXOL 350 MG/ML 10 ML VIAL (for RAD DIAG) IVCONTRAST ONE (20:52)
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
[2017-06-11] MEDS ORDERED: LIDO1PAD52 TOPICAL (21:16)
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
[2017-06-11] MEDS ORDERED: ACETAMINOPHEN 325 MG TAB PO ONE (21:45)
== END 2017-06-12 06:49 | disposition home or self-care (01) ==
LOC: NEPD 17:14
DX: S22.32XA Fracture of one rib, left side, initial encounter for closed fracture (principal); S02.2XXA Fracture of nasal bones, initial encounter for closed fracture; Y04.0XXA Assault by unarmed brawl or fight, initial encounter; F10.129 Alcohol abuse with intoxication, unspecified; Y90.8 Blood alcohol level of 240 mg/100 ml or more; I10 Essential (primary) hypertension; K21.9 Gastro-esophageal reflux disease without esophagitis; F12.90 Cannabis use, unspecified, uncomplicated; Z86.73 Personal history of transient ischemic attack (TIA), and cerebral infarction without residual deficits
CPT/HCPCS: 70450; 70486; 71045; 71260; 72125; 72129; 72132; 74177; 80053; 80307; 85025; 85610; 85730; 94150; 99285; Q9967

== ENCOUNTER 2017-07-05 21:54 | Emergency (ER) | payer OTHER ==
[~2017-07-05 21:54] MED LIST changes: -ASPI-147 PO; +LIDO1PAD52 TOPICAL; -METO25TA3 PO; -PANT40TA3 PO
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
[2017-07-05 22:19] VITALS: BP 163/83; PULSE 70; RESP 16; O2SAT 99
== END 2017-07-06 05:49 | disposition home or self-care (01) ==
LOC: NEDAMB 21:54 → NEPD 07-06 05:49
DX: F10.129 Alcohol abuse with intoxication, unspecified (principal); K21.9 Gastro-esophageal reflux disease without esophagitis; I10 Essential (primary) hypertension; F12.90 Cannabis use, unspecified, uncomplicated; Z85.01 Personal history of malignant neoplasm of esophagus; Z86.73 Personal history of transient ischemic attack (TIA), and cerebral infarction without residual deficits; Z72.0 Tobacco use
CPT/HCPCS: 99281

== ENCOUNTER 2017-07-06 12:10 | Emergency (ER) | payer OTHER ==
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
[2017-07-06 12:54] VITALS: BP 136/78; PULSE 78; RESP 18; TEMP 98.7; O2SAT 95
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
== END 2017-07-06 19:40 | disposition home or self-care (01) ==
LOC: NEPD 12:10
DX: F10.229 Alcohol dependence with intoxication, unspecified (principal); S52.125A Nondisplaced fracture of head of left radius, initial encounter for closed fracture; F12.90 Cannabis use, unspecified, uncomplicated; V19.9XXA Pedal cyclist (driver) (passenger) injured in unspecified traffic accident, initial encounter; Y93.55 Activity, bike riding; Z72.0 Tobacco use
CPT/HCPCS: 29105; 73080; 73090; 73110